=== PATIENT | male | born 1985 | race Caucasian/White ===

== ENCOUNTER 2025-03-30 11:09 | Outpatient (REF) | payer OTHER, SELFPAY ==
[2025-03-30 14:49] LABS: Hematocrit 43.3 % (42.0-52.0); Hemoglobin 14.6 g/dl (14.0-18.0); Mean Corpuscular HGB Conc 33.7 g/dl (31.0-36.0); Mean Corpuscular Hemoglobin 28.5 pg (27.0-33.0); Mean Corpuscular Volume 84.6 fL (80.0-98.0); NRBC Abs Auto 0.000 X10*3/uL (0.0-0.012); NRBC Pct Auto 0.0 /100WBC (0.0-0.2); Platelet Count 257 X10*3/uL (160-400); Red Blood Count 5.12 X10*6/uL (4.60-5.80); White Blood Count 6.2 X10*3/uL (4.8-10.8)
[2025-03-30 15:19] LABS: Alanine Aminotransferase 21 U/L (0-40); Albumin Level 4.6 g/dL (3.5-5.0); Alkaline Phosphatase 44 U/L (39-117); Anion Gap 11 (12-20); Aspartate Amino Transferase 28 U/L (5-37); Blood Urea Nitrogen 14 mg/dL (9-16); Calcium 9.2 mg/dL (8.4-10.2); Carbon Dioxide 23 mmol/L (22-29); Chloride 108 mmol/L (96-108); Cholesterol 168 mg/dL (<200); Estimated Glomerular Filt Rate > 60; Ferritin 131 ng/mL (20-250); HDL Cholesterol 43 mg/dL (>40); Potassium 4.3 mmol/L (3.3-5.1); Sodium 138 mmol/L (135-145); Total Protein 7.0 g/dL (6.5-8.0); Triglycerides 58 mg/dL (<150)
[2025-03-30 15:35] LABS: Folate 8.3 ng/mL (> or = 4.0); Vitamin B12 532 pg/mL (200-900)
== END 2025-03-30 11:10 | disposition home or self-care (01) ==
LOC: HO.WFDLDS 11:09
PROVIDERS: PCP Nurse Practitioner Family; Visit Provider Nurse Practitioner Family
DX: Z00.00 Encounter for general adult medical examination without abnormal findings (principal); Z76.89 Persons encountering health services in other specified circumstances; L40.9 Psoriasis, unspecified; L64.9 Androgenic alopecia, unspecified; R10.13 Epigastric pain
CPT/HCPCS: 36415; 80053; 80061; 82306; 82607; 82728; 82746; 83036; 84443; 85027; 96127

== ENCOUNTER 2025-03-30 11:09 | Outpatient (AMB) | payer OTHER, SELFPAY ==
--- NOTE | 2025-03-30 11:24 | MHC.PC.OV ---
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 Allergies No Known Allergies (No Known Allergies*) Allergy (Verified 03/30/25 11:46) Medication List - Last [facility] No Known Home Meds Tobacco use date assessed: 03/30/25 Dental Screening Dental Screen Date: 03/30/25 Did you have a dental visit in the last 12 months?: No Did you have a dental problem in the last 6 months where you did not have access to dental care?: No Was dental information given to patient?: Patient has dentist HPI HPI Comments History of Present Illness Details 40 y/o M with scalp psoriasis Surgery: None Fhx: Mom and Dad Alive. MGM uterine ca, MGF lung ca; PGF prostate thing? Maybe Dad, too. PGM unknown. 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 Last PCP > 10 years ago c/o episodic epigastric abdominal pain. - Pain occurs every 3-5 months, severe and lasts for hours. - Attempted induced vomiting once with relief. - No nausea/vomiting; sleep disturbance noted. - Antacids and gas relief tried without success. - Dry flaky skin of scalp w/ thick patches and hairloss; family hx sig for male pattern baldness. Past Surgical History - No history of surgeries. Family History - Maternal grandfather: lung cancer - Maternal grandmother: uterine cancer - Paternal grandfather: history of prostate issues - Paternal side family: male pattern baldness Social History - , two young twin sons. 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 Health Maintenance - Discussed prostate cancer screening starting at age 40, given family history. - Considered screening labs for diabetes and thyroid function. Review of Systems - Abdominal: Reports episodic pain. Denies nausea, vomiting. - Dermatological: Reports scalp dryness, flaking, and itching. Denies psoriasis in other areas. - General: Reports occasional induced vomiting for pain relief. Physical Exam General: Well developed, well nourished, in no acute distress. Appears stated age. Head: Normocephalic, atraumatic. Scalp is dry and flaky with plaques, consistent with psoriasis. Eyes: Pupils are equal, round and reactive to light and accommodation. Conjunctivae are clear. Vision grossly normal. Ears: TMs clear AU, EACS WNL. Hair growth noted in ears. Nose: Patent, without discharge. Neck: Supple, no adenopathy or thyromegaly. Breast: Edu on SBE Lungs: Clear to auscultation bilaterally. No rales, rhonchi or wheeze noted. Good air flow in all rasmussen. Heart: Regular rate and rhythm. No murmurs, click, rubs or gallops are noted. Abdomen: Bowel sounds present in all quadrants. The abdomen is soft, nontender, with no masses or organomegaly noted. No hernias are noted. : Deferred. Reviewed [place] & recommendations Pulses: Peripheral pulses are equal and palpable bilaterally. Extremities: No clubbing, cyanosis nor edema is noted. Reports bruised toe from recent injury. Neurologic: Gait and station normal. Cranial Nerves 2-12 intact. Motor strength grossly symmetrical and intact. No sensory loss. Balance normal. Skin: No rashes, ulcers, or lesions noted. Turgor is good. Skin color is good. Hair and nails are without abnormalities. Scalp psoriasis noted, affecting external ears, too Psych: Normal eye contact, affect and mood appropriate, and normal interactions. Patient is alert and appropriate to context. Results Pending Discussion Notes During our discussion, I reviewed the patient's symptoms of episodic abdominal pain and scalp psoriasis. We elaborated on the option to initiate fluocinonide oil for scalp treatment, including application frequency and expectations of oily effects. I discussed the need for potential diagnostic stool tests to assess underlying gastrointestinal factors contributing to abdominal pain. We discussed the importance of starting prostate cancer screening at age 40 in light of family history. Consent was confirmed for stool testing and scalp treatment. The importance of utilizing our patient portal for communication and appointment scheduling was emphasized. I outlined the need to return for evaluation after initial treatment trials to reassess care efficacy and explore additional diagnostic avenues, if needed. Patient was given time to ask questions. All questions were answered to their satisfaction. Assessment and Plan 1. Scalp Psoriasis - Use fluocinonide oil. - Tar-based or Selsun Blue shampoo OTC 2. Episodic Abdominal Pain - Stool test for infections. - Liver and bilirubin tests. - Consider ultrasound if tests are negative. 3. Hair Thinning - family history of male pattern baldness. Patient Instructions - Use fluocinonide oil on scalp at night with shower cap. - Wash hair with recommended shampoo. - Complete stool test for abdominal pain. - Get labs at clinic before leaving today. - Monitor symptoms; follow-up if health concerns continue. - Use patient portal for office communication. - RTO 4 weeks to review labs/treatment for scalp, sooner as needed. Consent Patient was informed and verbally consented to the use of an ambient scribe for clinic note documentation during this visit. An additional 18 minutes was spent addressing the problem(s) noted at todays visit. This includes time spent before the visit reviewing the chart, time spent during the visit, and time spent after the visit on documentation reviewing laboratory results, diagnostic imaging, medications, performing a medically necessary evaluation, counseling on diagnoses, care coordination, ordering appropriate tests, ordering appropriate medications, review of tests performed by other providers, reporting test results with the patient, communication with other healthcare providers. [facility] Medical History (Updated 03/30/25 @ 12:16 by Felisha Gann [facility]) Dry scalp GERD (gastroesophageal reflux disease) Thinning hair Family History (Updated 03/30/25 @ 11:32 by Josey Dueñas MA) Maternal Grandfather Diabetes Lung cancer Maternal Grandmother Uterine cancer Paternal Grandfather Prostate cancer Social History (Updated 03/30/25 @ 11:32 by Josey Dueñas MA) Housing: House Alcohol intake: former Patient Tobacco Use Status: Former Tobacco user Tobacco use type: Cigarette Cigarette Packs Per Day: 1 Cigarettes Per Day: 20 Years Smoked: 20 e-Cigarette/Vaping Use: Currently Using Second Hand Smoke Exposure: Yes service: No Current occupational status: employed 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 1. Little interest or pleasure in doing things: not at all 2. Feeling down, depressed, or hopeless: not at all 3. Trouble falling or staying asleep, or sleeping too much: not at all 4. Feeling tired or having little energy: not at all 5. Poor appetite or overeating: not at all 6. Feeling bad about yourself - or that you are a failure or have let yourself or your family down: not at all 7. Trouble concentrating on things, such as reading the newspaper or watching television: not at all 8. Moving or speaking so slowly that other people could have noticed. Or the opposite - being so fidgety or restless that you have been moving around a lot more than usual: not at all 9. Thoughts that you would be better off or of hurting yourself in some way: not at all Total score: 0 Depression Screening Interpretation: Negative Depression Screening Done: Yes 04963 - PHQ-9 Billing: Yes Source: Developed by Drs. Latrell Prince, Nadege Valdez, Yahir Aparicio and colleagues, with an educational pat from [employer] Thrive Questionnaire Date Thrive assessed: 03/30/25 I am a: Patient What is your living situation today?: I have a steady place to live Within the past 12 months, did the food you bought not last and you didn't have the money to get more?: Never true Within the past 12 months, did you worry whether your food would run out before you got money to buy more?: Never true Do you have trouble paying for medicines?: No Do you have trouble getting transportation to medical appointments?: No Do you have trouble paying your heating and electricity bill?: No Do you have trouble taking care of your child, family member or friend?: No Do you have trouble with day-to-day activities such as bathing, preparing meals, shopping, managing finances, etc.?: No Are you currently unemployed and looking for a job?: No Are you interested in more education?: Yes Please select the resources that you would like help with: None Currently or been in a relationship where the following occur: No concerns reported THRIVE Score: 0 AUDIT C Alcohol Use Questionnaire (AUDIT-C) 1. How often do you have a drink containing alcohol?: Never 3. How often do you have six or more drinks on one occasion?: Never Total Score: 0 Score Reviewed/Action Taken: Yes TAMERA-7 AMB Questionnaire TAMERA-7 Date TAMERA - 7 assessed: 03/30/25 Feeling nervous, anxious, or on edge: 1 = Several days Not being able to stop or control worryin = Several days Worrying too much about different things: 1 = Several days Trouble relaxin = Several days Being so restless that it is hard to sit still: 1 = Several days Becoming easily annoyed or irritable: 1 = Several days Feeling afraid as if something awful might happen: 0 = Not at all Total TAMERA-7 score (0-4 normal; 5-9 mild; 10-14 moderate; 15-21 severe): 6 Source: Developed by Drs. Latrell Prince, Nadege Valdez, Yahir Aparicio and colleagues, with an educational pat from [employer] TAMERA-7 Assessment Billing TAMERA-7 Assessment Tool: TAMERA-7 Assessment 69199 Physical exam (Primary Care) Vital Signs: Last Vital Signs Temp 98 F 03/30/25 11:35 Pulse 87 03/30/25 11:35 BP 114/78 03/30/25 11:35 Pulse Ox 96 03/30/25 11:35 Oxygen Delivery Method Room Air 03/30/25 11:35 BMI result Body Mass Index 29.1 Tobacco/Smoking Status: Tobacco use Status Tobacco use date assessed 03/30/25 03/30/25 11:37 Patient Tobacco Use Status Former Tobacco user 03/30/25 11:37 Tobacco use type Cigarette 03/30/25 11:37 e-Cigarette/Vaping Use Currently Using 03/30/25 11:37 PHQ-9: PHQ-9 Score PHQ-9: Total score 0 03/30/25 11:37 Depression Screening Interpretation: Negative Thrive Assessment: Date of Thrive Assessment Date Thrive assessed 03/30/25 03/30/25 11:37 Currently or been in a relationship where the following occur: No concerns reported Coding Level of Care Code New Pt Level 2 (82009) New Pt Prev Care 18-39yr(77345 Diagnoses Encounter to establish care with new provider Z76.89 Scalp psoriasis L40.9 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 Laboratory exam ordered as part of routine general medical examination Z00.00 Epigastric pain R10.13 Encounter for general adult medical examination without abnormal findings Z00.00 Additional Codes TAMERA-7 Assessment Billing - TAMERA-7 Assessment Tool: TAMERA-7 Assessment 75582 ([id number]) PHQ-9 - 86798 - PHQ-9 Billing: Yes ([id number]) Assessment & Plan Assessment & Plan (1) Encounter to establish care with new provider: Code(s): Z76.89 - Persons encountering health services in other specified circumstances (2) Scalp psoriasis: Code(s): L40.9 - Psoriasis, unspecified Category: Medical (3) Male pattern alopecia: Code(s): L64.9 - Androgenic alopecia, unspecified Category: Medical (4) Laboratory exam ordered as part of routine general medical examination: Code(s): Z00.00 - Encounter for general adult medical examination without abnormal findings Category: Medical (5) Epigastric pain: Code(s): R10.13 - Epigastric pain Category: Medical (6) Encounter for general adult medical examination without abnormal findings: Onset Date: ~03/30/25 Code(s): Z00.00 - Encounter for general adult medical examination without abnormal findings Category: Medical Plan . Orders: Orders Complete Blood Count no Diff Today Z00.00 - Encounter for general adult medical examination without abnormal findings Comprehensive Met. Panel Today Z00.00 - Encounter for general adult medical examination without abnormal findings Hemoglobin A1c Today Z00.00 - Encounter for general adult medical examination without abnormal findings Ferritin Today Z00.00 - Encounter for general adult medical examination without abnormal findings Microalbumin, Random (w Creat) Today Z00.00 - Encounter for general adult medical examination without abnormal findings TSH reflex Free T4 Today Z00.00 - Encounter for general adult medical examination without abnormal findings Vitamin D 25-OH Total Today Z00.00 - Encounter for general adult medical examination without abnormal findings Lipid Panel Today Z00.00 - Encounter for general adult medical examination without abnormal findings Vitamin B12 and Folate Today Z00.00 - Encounter for general adult medical examination without abnormal findings H pylori Ag Stool Today R10.13 - Epigastric pain Medications: New fluocinolone 0.01% 1 appl topical DAILY 118.28 mL 2RF Patient Instructions: Patient Instructions - Use fluocinonide oil on scalp at night with shower cap. - Wash hair with Selsun Blue Shampoo (over the counter for psoriasis) OR a tar based shampoo (several over the counter options) - Complete stool test for abdominal pain. - Get labs at clinic before leaving today. - Monitor symptoms; follow-up if health concerns continue. - Use patient portal for office communication. - Return in about 4 weeks to follow up on lab results and abdominal pain, sooner as needed. _ Tell Jeanette i said heljessica! :) Walk-In Care (Urgent Care): We Make it Easy Walk-in for urgent medical issues such as: ? Seasonal Allergies ? Insect Bites ? Cough ? Diarrhea ? Acute Asthma Attacks ? Back, Knee or Joint Pain ? Ear Infection ? Fever without a Rash ? Headaches ? Nausea ? [place] Eye, Rash or Skin Irritation ? Sore Throat ? Sports Physicals ? Vomiting Most insurances are accepted. Patients do not need to be part of the [facility] to seek care at the walk-in clinic. Locations [facility] [place] [address] ? [phone] [facility] Walk-In Care in [place] provides services to ages 18 and over. Open Wednesday-Wednesday: 7 a.m. to 5 p.m. and Wednesday: 9 a.m. to 3 p.m.* *Hours may vary due to staffing availability. To confirm Walk-In Care hours in [place], please call [phone]. [address] [place] [address] ? [phone] [facility] Walk-In Care in [place] provides services to ages 12 and over. Open Wednesday-Wednesday: 8 a.m. to 5 p.m. Hours may vary due to staffing availability. To confirm Walk-In Care hours in [place], please call [phone]. LABORATORY SERVICES: [facility] Lab ? Primary Location [address] [place] [address] Wednesday through Wednesday 6:00 AM ? 5:00 PM Wednesday 7:00 AM ? 11:00 AM* [phone] The [facility] Lab is centrally located near the front entrance of the [facility] for easy outpatient access. Convenient parking is provided for outpatients. *Hours may vary due to staffing availability. To confirm Laboratory hours for any location, please call [phone]. Offsite Location For your convenience, we offer offsite laboratory draw stations at the following locations: [address] [facility] [place] ? [facility] [address] [facility], [address], [place] Wednesday through Wednesday 7:30 AM ? 1:00 PM* [phone] *Hours may vary due to staffing availability. To confirm Laboratory hours for any location, please call [phone]. [place] ? [facility] [address] [facility] Wednesday through Wednesday 6:00 AM ? 3:30 PM* Wednesday 6:30 AM ? 3 PM* [phone] *Hours may vary due to staffing availability. To confirm Laboratory hours for any location, please call [phone]. [address] [facility] Wednesday through Wednesday 7:30 AM ? 4:00 PM* [phone] *Hours may vary due to staffing availability. To confirm Laboratory hours for any location, please call [phone] [place] [address] Wednesday through 9:00 AM ? 4:00 PM* *Hours may vary due to staffing availability. To confirm Laboratory hours for any location, please call [phone]. Appointments are not necessary. Walk-ins are welcome. Like all the departments throughout the [facility], our Lab undergoes frequent reviews to ensure the quality and accuracy of test results, and our staff takes special pride in its status as a nationally accredited facility. Patient Portal: [facility] ONE PATIENT. ONE RECORD. BETTER CARE. [facility] has a fully integrated, cutting-edge mobile electronic health information system that has revolutionized the way we care for our patients and manage our organization. This system improves communication and coordination enabling us to provide safe, higher-quality care, and an overall positive experience for staff and patients. Our first priority, as always, is to deliver the highest quality care possible. The system is running in the background supporting that priority. This portal is for all [facility] services and practices. If you are experiencing any technical difficulties with enrolling or logging into the Patient Portal please complete the [facility] Patient Portal Technical Support Form. [facility] now offers a new secure on-line interactive tool for patients to review their health information ? ?Patient Portal. This interactive web portal will enable patients and their families to take an active role in their care by providing easy, secure access to their health information via the internet. The Patient Portal provides patients with instant access to their health information, including laboratory results, medications, allergies, demographic information, visit history, and more. In addition to managing their own care, parents and health care proxies with authorized consent will appreciate the ability to access the records of those individuals for whom they provide care. Please note: if you wish to gain access (Proxy) to another patient?s portal, you will be required to come to the Medical Records Department in person at [facility]. Both the patient giving proxy access and the proxy will need to provide photo identification and complete the appropriate authorization. The Patient Portal also allows track their appointments online. The [facility] Patient Portal also saves patients time by allowing them to submit updates to their demographic and contact information prior to their visits. Portal email notifications will also alert patients to any new activity on their portal, such as test results and new appointments. In order to initially enroll in the [facility] Patient Portal, you will need to enter some required information including the following: your [facility] Medical Record number your personal home email address name date of Please note: In order to enroll in the [facility] Patient Portal, we need to have your email address on file in your electronic medical record. ?The email address needs to be specific for one person (yourself) in order for your Portal enrollment to be successful. ?You can update your email address in person with our Registration staff when you are registering for a hospital visit. ?Otherwise, you will need to come to the Health Information Management (Medical Records) Department at [facility]. ?We are open from Wednesday ? Wednesday from 7:30 a.m. ? 4:30 p.m. ?You will be required to present a photo id. Once you have successfully enrolled in the Patient Portal, you will receive a one-time user id and password for the Portal, sent to your email address. ?This will allow you to log into the Patient Portal within 99 hrs and reset your own logon id and password, and define personal security questions. ?Once your permanent login and password have been set, you can log into the [facility] Patient Portal at any time via the blue button above or from the Portal Logon button on any page of the [facility] website. [facility] encourage all of our patients to enroll in Patient Portal as it presents a valuable opportunity for patients and their families to actively participate in their care and stay healthy Welcome to [facility]. ?We look forward to working with you. Health screenings for men You should visit your health care provider regularly, even if you feel healthy. The purpose of these visits is to: Screen for medical issues Assess your risk for future medical problems Encourage a healthy lifestyle Update vaccinations and other preventive care services Help you get to know your provider in case of an illness Information Even if you feel fine, you should still see your provider for regular checkups. These visits can help you avoid problems in the future. For example, the only way to find out if you have high blood pressure is to have it checked regularly. High blood sugar and high cholesterol level also may not have any symptoms in the early stages. Simple blood tests can check for these conditions. There are specific times when you should see your provider or receive specific health screenings. The [place] Preventive Services Task Force publishes a list of recommended screenings. Below are screening guidelines for men ages 40 to 64. BLOOD PRESSURE SCREENING Have your blood pressure checked at least once every year. Watch for blood pressure screenings in your area. Ask your provider if you can stop in to have your blood pressure checked. Ask your provider if you need your blood pressure checked more often if: You have diabetes, heart disease, kidney problems, or are overweight or have certain other health conditions You have a first-degree relative with high blood pressure You are Black Your blood pressure top number is from 120 to 129 mm Hg, or the bottom number is from 70 to 79 mm Hg If the top number is 130 mm Hg or greater or the bottom number is 80 mm Hg or greater, this is considered stage 1 hypertension. Schedule an appointment with your provider to learn how you can lower your blood pressure. Effects of age on blood pressure CHOLESTEROL SCREENING Cholesterol screening should begin at age 35 for men with no known risk factors for coronary heart disease. Repeat cholesterol screening should take place: Every 5 years for men with normal cholesterol levels More often if changes occur in lifestyle (including weight gain and diet) More often if you have diabetes, heart disease, kidney problems, or certain other conditions COLORECTAL CANCER SCREENING If you are under age 45, talk to your provider about getting screened. You may need to be screened if you have a strong family history of colon cancer or polyps. Screening may also be considered if you have risk factors such as a history of inflammatory bowel disease or polyps. If you are age 45 to 75, you should be screened for colorectal cancer. There are several screening tests available: A stool-based fecal occult blood (gFOBT) or fecal immunochemical test (FIT) every year A stool sDNA test every 1 to 3 years Flexible sigmoidoscopy every 5 years or every 10 years with stool testing FIT done every year CT colonography (virtual colonoscopy) every 5 years Colonoscopy every 10 years You may need a colonoscopy more often if you have risk factors for colorectal cancer, such as: Ulcerative colitis A personal or family history of colorectal cancer A history of growths in your colon called adenomatous polyps DENTAL EXAM Go to the dentist once or twice every year for an exam and cleaning. Your dentist will evaluate if you have a need for more frequent visits. DIABETES SCREENING All adults who do not have risk factors for diabetes should be screened starting at age 35 and repeated every 3 years. If you have other risk factors for diabetes, such as a first degree relative with diabetes, overweight or obesity, high blood pressure, prediabetes, or a history of heart disease, you may be tested more often. If you are overweight and have other risk factors, such as high blood pressure and are planning to become , screening is recommended. EYE EXAM Have an eye exam every 2 to 4 years ages 40 to 54 and every 1 to 3 years ages 55 to 64. Your provider may recommend more frequent eye exams if you have vision problems or glaucoma risk. Have an eye exam that includes an examination of your retina (back of your eye) at least every year if you have diabetes. IMMUNIZATIONS Commonly needed vaccines include: Flu shot: get one every year COVID-19 vaccine: ask your provider what is best for you Tetanus-diphtheria and acellular pertussis (Tdap) vaccine: have as one of your tetanus-diphtheria vaccines if you did not receive it as an adolescent Tetanus-diphtheria: have a booster (or Tdap) every 10 years Varicella vaccine: receive 2 doses if you never had chickenpox or the varicella vaccine and were born in 1980 or after Hepatitis B vaccine: receive 2, 3, or 4 doses, depending on your exact circumstances, if you did not receive these as a child or adolescent, until age 59 Shingles (herpes zoster) vaccine: at or after age 50 Ask your provider if you should receive other immunizations, especially if you have certain medical conditions, such as diabetes or are at increased risk for some diseases such as pneumonia. INFECTIOUS DISEASE SCREENING Screening for hepatitis C: all adults ages 18 to 79 should get a one-time test for hepatitis C. Screening for human immunodeficiency virus (HIV): all people ages 15 to 65 should get a one-time test for HIV. Depending on your lifestyle and medical history, you may need to be screened for infections such as syphilis, chlamydia, and other infections. LUNG CANCER SCREENING You should have an annual screening for lung cancer with low-dose computed tomography (LDCT) if: You are age 50 to 80 years AND You have a 20 pack-year smoking history AND You currently smoke or have quit within the past 15 years OSTEOPOROSIS SCREENING If you are age 50 to 64 and have risk factors for osteoporosis, you should discuss screening with your provider. Risk factors can include long-term steroid use, low body weight, smoking, heavy alcohol use, having a fracture after age 50, or a family history of hip fracture or osteoporosis. Osteoporosis PHYSICAL EXAM All adults should visit their provider from time to time, even if they are healthy. The purpose of these visits is to: Screen for diseases Assess risk of future medical problems Encourage a healthy lifestyle Update vaccinations and other preventive care services Maintain a relationship with a provider in case of an illness Your height, weight, and body mass index (BMI) should be checked at every exam. During your exam, your provider may ask you about: Depression and anxiety Diet and exercise Alcohol and tobacco use Safety, such as use of seat belts and smoke detectors Your medicines and risk for interactions PROSTATE CANCER SCREENING If you're 55 through 69 years old, before having the test, talk to your provider about the pros and cons of having a PSA test. Ask about: Whether screening decreases your chance of dying from prostate cancer. Whether there is any harm from prostate cancer screening, such as side effects from testing or overtreatment of cancer when discovered. Whether you have a higher risk of prostate cancer than others. If you are age 55 or younger, screening is not generally recommended. You should talk with your provider about if you have a higher risk for prostate cancer. Risk factors include: Having a family history of prostate cancer (especially a brother or father) Being If you choose to be tested, the PSA blood test is repeated over time (yearly or less often), though the best frequency is not known. Prostate examinations are no longer routinely done on men with no symptoms. Prostate cancer SKIN EXAM Your provider may check your skin for signs of skin cancer, especially if you're at high risk. People at high risk include those who have had skin cancer before, have close relatives with skin cancer, or have a weakened immune system. TESTICULAR EXAM The [place] Preventive Services Task Force (USPSTF) now recommends against performing testicular self-exams. Doing testicular self-exams has been shown to have little to no benefit.
[2025-03-30 11:35] VITALS: BP 114/78; PULSE 87; TEMP 36.6; O2SAT 96; BMI 29.1
--- OUTSIDE RECORDS SUMMARY | 2025-03-30 11:51 | XMS_ITS | Clinical Summary ---
[facility] Organization [facility] [address] [place] [address] Care Team Providers Care Nurse Researcher Name Role Phone Unavailable Primary Care Provider Unavailabl e Social History Tobacco Use Types Packs/Day Years Used Date Smoking Tobacco: Never Assessed Sex and Gender Information Value Date Recorded Sex Assigned at Not on file Gender Identity Not on file Sexual Orientation Not on file Plan of Treatment Not on file
--- OUTSIDE RECORDS SUMMARY | 2025-03-30 11:51 | XMS_ITS ---
Author Name [facility] Organization Unknown Care Team Organization Name Specialty Phone Email Start Date End [facility] te [employer] 07/09/2022 0 03/20/2024
== END 2025-03-30 12:17 | disposition home or self-care (01) ==
LOC: HO.HMCFM 11:09
PROVIDERS: PCP Nurse Practitioner Family; Visit Provider Nurse Practitioner Family
DX: Z00.00 Encounter for general adult medical examination without abnormal findings (principal); L40.9 Psoriasis, unspecified; L64.9 Androgenic alopecia, unspecified; R10.13 Epigastric pain; Z76.89 Persons encountering health services in other specified circumstances

== ENCOUNTER 2025-05-11 08:57 | Outpatient (REF) | payer OTHER, SELFPAY | END 2025-05-11 08:58 | disposition home or self-care (01) | LOC: HO.LNP 08:57 | PROVIDERS: PCP Nurse Practitioner Family; Visit Provider Nurse Practitioner Family | DX: R10.13 Epigastric pain (principal); L40.9 Psoriasis, unspecified; Z28.21 Immunization not carried out because of patient refusal | CPT/HCPCS: 87338; 96127 ==

== ENCOUNTER 2025-05-11 08:57 | Outpatient (AMB) | payer OTHER, SELFPAY ==
--- NOTE | 2025-05-11 08:59 | A.OFFPC_ITS ---
Vital Signs 05/11/25 09:03 Height 5 ft 8.75 in BMI Reason not done Patient refused/unable BP 112/68 Blood Pressure Location Lt brachial Position Sitting Respiration 12 Pulse 58 Pulse Source Pulse Oximeter Temp 97.2 F Temp Source Oral Pulse Oximetry (%) 98 Oxygen Delivery Method Room Air Intake Visit Reasons: 4 weeks fu labs/abd pain Intake Note: Follow up on abd px and review labs. Chemistry Lab Instructor Required: No Allergies No Known Allergies (No Known Allergies*) Allergy (Verified 05/11/25 09:16) Medication List - Last Reconciled 05/11/25 by Felisha Gann, BAKERY SALES CLERK-BC fluocinolone 0.01% 1 appl topical DAILY Tobacco use date assessed: 05/11/25 Dental Screening Dental Screen Date: 05/11/25 Did you have a dental visit in the last 12 months?: Yes Did you have a dental problem in the last 6 months where you did not have access to dental care?: No Was dental information given to patient?: Patient has dentist HPI HPI Comments History of Present Illness Details 40 y/o M with scalp psoriasis Surgery: None Fhx: Mom and Dad Alive. MGM uterine ca, MGF lung ca; PGF prostate thing? Maybe Dad, too. PGM unknown. 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 Appears stated age. Head: Normocephalic, atraumatic. Scalp is dry and flaky with plaques, consistent with psoriasis. Eyes: Pupils are equal, round and reactive to light and accommodation. Conjunctivae are clear. Scleras nonicteric Abdomen: Bowel sounds present in all quadrants. The abdomen is soft, nontender, with no masses or organomegaly noted. No hernias are noted. Skin: No rashes, ulcers, or lesions noted. Turgor is good. Skin color is good. Hair and nails are without abnormalities. Scalp psoriasis noted, affecting external ears, too Psych: Normal eye contact, affect and mood appropriate, and normal interactions. Patient is alert and appropriate to context. Results - Labs: - CBC: Normal - Electrolytes: Normal - Kidneys: Normal function - A1c: 4.9% - Ferritin: Normal - Bilirubin: Normal - Liver enzymes: Normal - Protein stores: Normal - LDL: 114 mg/dL - HDL: 43 mg/dL - Total cholesterol: 168 mg/dL - B12: Normal - Vitamin D: Normal - Folate: Normal - Thyroid function: Normal - Labs: - CBC : Normal - Electrolytes: Normal - Kidneys: Normal function - A1c: 4.9% - Ferritin: Normal - Bilirubin: Normal - Liver enzymes: Normal - Protein stores: Normal - LDL: 114 mg/dL - HDL: 43 mg/dL - Total cholesterol: 168 mg/dL - B12: Normal - Vitamin D: Normal - Folate: Normal - Thyroid function: Normal Discussion Notes I discussed the absence of current abdominal pain and the possible role of dietary factors in previous episodes. We reviewed the patient's recent laboratory results, which were normal except for LDL and HDL levels. Suggestions for managing scalp dermatitis with exqr-ist-ahrlyra options were also provided. I proposed further evaluation of abdominal issues with an ultrasound of the liver and gallbladder to check for any abnormalities, such as gallstones. The patient was informed about the potential positive result in the stool sample for H. pylori, which would necessitate a medication regimen. Consent was obtained for the ultrasound, and instructions were provided on accessing the patient portal for results and communication. I emphasized the importance of annual physicals to maintain continuity of care. Patient was given time to ask questions. All questions were answered to their satisfaction. Assessment and Plan 1. Scalp Psoriasis - Use fluocinonide oil. - Tar-based or Selsun Blue shampoo OTC 2. Episodic Abdominal Pain - Stool test for infections. - Us to eval for gallstones. - Stool results will be sent to portal RTO Mar sooner as needed. Consent Patient was informed and verbally consented to the use of an ambient scribe for clinic note documentation during this visit. Total time spent: 30 min PENDING SALE TO [facility] Medical History (Updated 05/11/25 @ 09:30 by ZULMA Ramírez-) Dry scalp GERD (gastroesophageal reflux disease) Thinning hair Family History (Updated 03/30/25 @ 11:32 by Josey Dueñas MA) Maternal Grandfather Diabetes Lung cancer Maternal Grandmother Uterine cancer Paternal Grandfather Prostate cancer Social History (Updated 03/30/25 @ 11:32 by Josey Dueñas MA) Housing: House Alcohol intake: former Patient Tobacco Use Status: Former Tobacco user Tobacco use type: Cigarette Cigarette Packs Per Day: 1 Cigarettes Per Day: 20 Years Smoked: 20 e-Cigarette/Vaping Use: Currently Using Second Hand Smoke Exposure: Yes service: No Current occupational status: employed 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 1. Little interest or pleasure in doing things: not at all 2. Feeling down, depressed, or hopeless: not at all 3. Trouble falling or staying asleep, or sleeping too much: not at all 4. Feeling tired or having little energy: not at all 5. Poor appetite or overeating: not at all 6. Feeling bad about yourself - or that you are a failure or have let yourself or your family down: not at all 7. Trouble concentrating on things, such as reading the newspaper or watching television: not at all 8. Moving or speaking so slowly that other people could have noticed. Or the opposite - being so fidgety or restless that you have been moving around a lot more than usual: not at all 9. Thoughts that you would be better off or of hurting yourself in some way: not at all Total score: 0 Depression Screening Interpretation: Negative Depression Screening Done: Yes 23003 - PHQ-9 Billing: Yes Source: Developed by Drs. Latrell Prince, Nadege Valdez, Yahir Aparicio and colleagues, with an educational pat from [employer]. Thrive Questionnaire Date Thrive assessed: 05/11/25 I am a: Patient What is your living situation today?: I have a steady place to live Within the past 12 months, did the food you bought not last and you didn't have the money to get more?: Never true Within the past 12 months, did you worry whether your food would run out before you got money to buy more?: Never true Do you have trouble paying for medicines?: No Do you have trouble getting transportation to medical appointments?: No Do you have trouble paying your heating and electricity bill?: No Do you have trouble taking care of your child, family member or friend?: No Do you have trouble with day-to-day activities such as bathing, preparing meals, shopping, managing finances, etc.?: No Are you currently unemployed and looking for a job?: No Are you interested in more education?: Yes Please select the resources that you would like help with: None Currently or been in a relationship where the following occur: No concerns reported THRIVE Score: 0 AUDIT C Alcohol Use Questionnaire (AUDIT-C) 1. How often do you have a drink containing alcohol?: 2-4 times a month 2. How many drinks containing alcohol do you have on a typical day when you are drinking?: 1 or 2 3. How often do you have six or more drinks on one occasion?: Never Total Score: 2 TAMERA-7 AMB Questionnaire TAMERA-7 Date TAMERA - 7 assessed: 05/11/25 Feeling nervous, anxious, or on edge: 0 = Not at all Not being able to stop or control worryin = Not at all Worrying too much about different things: 0 = Not at all Trouble relaxin = Not at all Being so restless that it is hard to sit still: 0 = Not at all Becoming easily annoyed or irritable: 2 = More than half the days Feeling afraid as if something awful might happen: 0 = Not at all Total TAMERA-7 score (0-4 normal; 5-9 mild; 10-14 moderate; 15-21 severe): 2 Source: Developed by Drs. Latrell Prince, Nadege Valdez, Yahir Aparicio and colleagues, with an educational pat from [employer]. TAMERA-7 Assessment Billing TAMERA-7 Assessment Tool: TAMERA-7 Assessment 53922 Physical exam (Primary Care) Vital Signs: Last Vital Signs Temp 97.2 F 05/11/25 09:03 Pulse 58 05/11/25 09:03 Resp 12 05/11/25 09:03 BP 112/68 05/11/25 09:03 Pulse Ox 98 05/11/25 09:03 Oxygen Delivery Method Room Air 05/11/25 09:03 Tobacco/Smoking Status: Tobacco use Status Tobacco use date assessed 05/11/25 05/11/25 09:04 Patient Tobacco Use Status Former Tobacco user 05/11/25 08:59 Tobacco use type Cigarette 05/11/25 08:59 e-Cigarette/Vaping Use Currently Using 05/11/25 08:59 PHQ-9: PHQ-9 Score PHQ-9: Total score 0 05/11/25 09:04 Depression Screening Interpretation: Negative Thrive Assessment: Date of Thrive Assessment Date Thrive assessed 05/11/25 05/11/25 08:59 Currently or been in a relationship where the following occur: No concerns reported Results Reviewed Results Reviewed: Test 03/30/25 Result Units Range Flag Collected White Blood Count 6.2 X10*3/uL (4.8-10.8) 03/30/25 Red Blood Count 5.12 X10*6/uL (4.60-5.80) 03/30/25 Hemoglobin 14.6 g/dl (14.0-18.0) 03/30/25 Hematocrit 43.3 % (42.0-52.0) 03/30/25 Mean Corpuscular Volume 84.6 fL (80.0-98.0) 03/30/25 Mean Corpuscular Hemoglobin 28.5 pg (27.0-33.0) 03/30/25 Mean Corpuscular Hemoglobin Concent 33.7 g/dl (31.0-36.0) 03/30/25 Red Cell Distribution Width 12.6 % (11.0-16.0) 03/30/25 Platelet Count 257 X10*3/uL (160-400) 03/30/25 Mean Platelet Volume 10.0 fL (9.4-12.4) 03/30/25 Nucleated RBC Absolute Count (auto) 0.000 X10*3/uL (0.0-0.012) 03/30/25 Nucleated Red Blood Cells % (auto) 0.0 /100WBC (0.0-0.2) 03/30/25 Sodium Level 138 mmol/L (135-145) 03/30/25 Potassium Level 4.3 mmol/L (3.3-5.1) 03/30/25 Chloride Level 108 mmol/L (96-108) 03/30/25 Carbon Dioxide Level 23 mmol/L (22-29) 03/30/25 Anion Gap 11 (12-20) Low 03/30/25 Blood Urea Nitrogen 14 mg/dL (9-16) 03/30/25 Creatinine 0.83 mg/dL (0.5-1.4) 03/30/25 Estimated Creatinine Clearance Calc Not Reportable 03/30/25 Estimat Glomerular Filtration Rate > 60 03/30/25 Random Glucose 93 mg/dL (60-115) 03/30/25 Estimated Average Glucose 94 mg/dL 03/30/25 Hemoglobin A1c Percent 4.9 % (<6.0) 03/30/25 Calcium Level 9.2 mg/dL (8.4-10.2) 03/30/25 Ferritin 131 ng/mL (20-250) 03/30/25 Total Bilirubin 0.4 mg/dL (0.0-1.0) 03/30/25 Aspartate Amino Transf (AST/SGOT) 28 U/L (5-37) 03/30/25 Alanine Aminotransferase (ALT/SGPT) 21 U/L (0-40) 03/30/25 Alkaline Phosphatase 44 U/L (39-117) 03/30/25 Total Protein 7.0 g/dL (6.5-8.0) 03/30/25 Albumin 4.6 g/dL (3.5-5.0) 03/30/25 Triglycerides Level 58 mg/dL (<150) 03/30/25 Cholesterol Level 168 mg/dL (<200) 03/30/25 LDL Cholesterol, Calculated 114 mg/dL (<100) High 03/30/25 HDL Cholesterol 43 mg/dL (>40) 03/30/25 Vitamin B12 Level 532 pg/mL (200-900) 03/30/25 25-Hydroxy Vitamin D Total 56.1 ng/mL (>30) 03/30/25 Folate 8.3 ng/mL (> or = 4.0) 03/30/25 Thyroid Stimulating Hormone (TSH) 1.35 uIU/mL (0.32-4.0) 03/30/25 Coding Level of Care Code Est Pt Level 4 (77619) Complex EM visit Add On G2211 Diagnoses Epigastric pain R10.13 Influenza vaccination declined Z28.21 Scalp psoriasis L40.9 Additional Codes TAMERA-7 Assessment Billing - TAMERA-7 Assessment Tool: TAMERA-7 Assessment 55057 ([id number]) PHQ-9 - 01526 - PHQ-9 Billing: Yes ([id number]) Assessment & Plan Assessment & Plan (1) Epigastric pain: Code(s): R10.13 - Epigastric pain Category: Medical (2) Influenza vaccination declined: Code(s): Z28.21 - Immunization not carried out because of patient refusal Category: Medical (3) Scalp psoriasis: Code(s): L40.9 - Psoriasis, unspecified Category: Medical Plan . Orders: Orders US abdomen limited Today R10.13 - Epigastric pain
[2025-05-11 09:03] VITALS: BP 112/68; PULSE 58; RESP 12; TEMP 36.2; O2SAT 98
--- OUTSIDE RECORDS SUMMARY | 2025-05-11 09:19 | XMS_ITS | Clinical Summary ---
[facility] Address [address] [place] [address] Care Team Providers Care Medical Billing Associate Name Role Phone Unavailable Primary Care Provider Unavailabl e Social History Tobacco Use Types Packs/Day Years Used Date Smoking Tobacco: Never Assessed Sex and Gender Information Value Date Recorded Sex Assigned at Not on file Gender Identity Not on file Sexual Orientation Not on file Plan of Treatment Not on file
== END 2025-05-11 09:33 | disposition home or self-care (01) ==
PROVIDERS: PCP Nurse Practitioner Family; Visit Provider Nurse Practitioner Family
DX: R10.13 Epigastric pain (principal); Z28.21 Immunization not carried out because of patient refusal; L40.9 Psoriasis, unspecified